=== PATIENT | male | born 1950 | race Caucasian/White ===

== ENCOUNTER 2017-03-25 09:22 | Observation (INO) | payer MEDICARE, OTHER ==
[2017-03-21 12:00] LABS: HEMATOCRIT 41.1 % (40.0-51.0); HEMOGLOBIN 13.8 g/dL (13.6-17.8)
[2017-03-21 12:08] LABS: ASCORBIC ACID (UR NOT ORDER) NEG (NEG); BILIRUBIN, URINE NEGATIVE (NEG); KETONE, URINE NEGATIVE (NEG); LEUKOCYTE ESTERASE(NOT OR NEG (NEG); WBC (NOT ORDERED) (RFLEX) 1 (0-5)
[2017-03-21 12:35] LABS: CALCIUM, SERUM 9.1 MG/DL (8.5-10.4); CHLORIDE, SERUM 108 MMOL/L (96-112); CO2 (CARBON DIOXIDE) 28 MMOL/L (24-34); CREATININE 0.87 MG/DL (0.70-1.30); GFR AFRICAN AMERICAN 103 ML/MIN (>=60); GFR NON AFRICAN AMERICAN 89 ML/MIN (>=60); POTASSIUM, SERUM 4.1 MMOL/L (3.5-5.3); SODIUM, SERUM 144 MMOL/L (135-148)
[2017-03-21 12:36] LABS: BUN (BLOOD UREA NITROGEN) 21 MG/DL (6-23); GLUCOSE, SERUM 103 MG/DL (60-99)
--- NOTE | ~2017-03-25 | OP ---
Record Of Operation [facility] [address] [place]. [address] NAME: BERT PALACIOS JR : 46 STATUS : ADM Joyce PAT#: [id number] AGE: 66 ADM/REG DATE : 03/25/17 MR#: [id number] REPORT SERV DATE: 03/28/17 DICTATED BY: AP GONZALEZ DATE: 03/27/17 REPORT STATUS : Draft TRANSCRIBED BY: [email or web address] DATE: 03/27/17 DATE OF PROCEDURE: 03/25/2017 TITLE OF OPERATION: Cystourethroscopy, transurethral resection of the prostate. PREOPERATIVE DIAGNOSIS: BPH with obstruction. POSTOPERATIVE DIAGNOSIS: BPH with obstruction. INDICATIONS: Mr. Palacios is a 66-year-old male with BPH and obstructive urination. He has a prostate volume of 60 mL. He is here for transurethral resection of the prostate. ANESTHESIA: General. COMPLICATIONS: None. IMPLANTS: 22-Sing[place]an 3-way Meyer catheter. SPECIMEN: Prostatic chips for analysis. NARRATIVE: The patient was brought to the operating room and identified by his wristband. General anesthesia was induced, and Ancef was given for preoperative antibiotics. He was placed in dorsal lithotomy position and prepped and draped in sterile fashion. A 24-Singaporean resectoscope sheath was placed into his urethra and into his bladder with the aid of an obturator. The bladder was inspected. There were some mild trabeculations, but no diverticulum. There was no tumors or other abnormalities. The prostate was inspected. There was bilobar hypertrophy with no median lobe and a high-riding bladder neck. Using a 24-Singaporean loop, the prostate was resected from its base to its apex circumferentially. The dissection was carried down to the level of the capsule laterally and superiorly into the level of the peripheral and transitional zone junction posteriorly. The verumontanum was spared as was the external urinary sphincter. The ureteral orifices were in orthotopic position and were uninjured during the case. The chips were removed from the bladder, and the bladder was inspected. There was no significant bleeding. There were no retained chips. A 22-Sing[place]an 3-way Meyer catheter was placed into the bladder. The balloon was inflated with 40 mL of sterile water. CBI was initiated, and the catheter was taped on traction. The patient was then awoken from anesthesia and transferred to recovery room in stable condition. There were no complications. SERJIO/NENA Ap Gonzalez MD / [id number] Record Of Operation [address] [place]. [address] NAME: BERT PALACIOS : 46 STATUS : ADM Joyce PAT#: [id number] AGE: 66 ADM/REG DATE : 03/25/17 MR#: [id number] REPORT SERV DATE: 03/28/17 DICTATED BY: AP GONZALEZ DATE: 03/27/17 REPORT STATUS : Draft TRANSCRIBED BY: NENA DATE: 03/27/17 CC: MD Ventura Lares M.D.
[~2017-03-25 09:22] MED LIST: CELEXA40 MG PO; FLOMAX4 PO; GLUCOPHXR7 PO; GLUCPH PO; HYZAAR 100/25 T1 TAB PO; K-TABS10 MEQ PO; L20 PO; LOVAZA1 GM PO; MELA3 PO; NABUMETONE750 MG PO; NIACIN 500 PO; NIASPAN500 PO; NORCO1 TA2 PO; NORV5 PO; OMEGA Q PLUS PO; PERCOCET1 TA4 PO; PRILOSEC40 MG PO; TOPXL100 PO; V5 PO; WELCHOL 625 MG625 MG PO; ZETIA PO
[2017-03-25 13:02] LABS: HEMATOCRIT 38.4 % (40.0-51.0); HEMOGLOBIN 13.2 g/dL (13.6-17.8)
[2017-03-26 05:34] LABS: HEMATOCRIT 40.8 % (40.0-51.0); HEMOGLOBIN 13.8 g/dL (13.6-17.8)
[2017-03-26] MEDS ORDERED: MACROBID PO (08:10)
[2017-03-26] MEDS ORDERED: DSS PO (08:10)
[2017-03-26] MEDS ORDERED: PCET PO (08:11)
[2017-03-27 15:07] LABS: BASOPHILS 0.2 %; BASOPHILS ABSOLUTE 0.01 10/3/uL (0.0-0.16); EOSINOPHILS 1.6 %; EOSINOPHILS ABSOLUTE 0.09 10/3/uL (0.0-0.53); HEMATOCRIT 40.7 % (40.0-51.0); HEMOGLOBIN 13.8 g/dL (13.6-17.8); IMMATURE GRANULOCYTES 0.2 %; IMMATURE GRANULOCYTES ABSOLUTE 0.01 10/3/uL (0.0-0.11); LYMPHOCYTES 36.4 %; LYMPHOCYTES ABSOLUTE 1.99 10/3/uL (0.67-4.30); MEAN CORPUS HGB CONC 33.9 g/dL (32.0-36.0); MEAN CORPUSCULAR HEMOGLOB 32.7 pg (26.0-34.0); MEAN CORPUSCULAR VOLUME 96.4 fL (80-100); MEAN PLATELET VOLUME 9.1 fL (9.2-13.0); MONOCYTES 8.6 %; MONOCYTES ABSOLUTE 0.47 10/3/uL (0.21-1.20); NEUTROPHILS ABSOLUTE 2.89 10/3/uL (2.02-8.40); PLATELET COUNT 176 10/3/uL (150-400); RBC DISTRIBUTION WIDTH 13.1 % (12.0-16.0); RED CELL COUNT 4.22 10/6/uL (4.7-6.1); WHITE BLOOD CELLS 5.5 10/3/uL (4.5-10.5)
[2017-03-27 15:08] LABS: MANUAL DIFF NO %
[2017-03-27 16:33] LABS: A/G RATIO 0.9 (0.7-1.9); ALBUMIN 3.1 G/DL (3.5-5.0); ALKALINE PHOSPHATASE 91 U/L (45-117); CALCIUM, SERUM 8.9 MG/DL (8.5-10.4); CHLORIDE, SERUM 103 MMOL/L (96-112); CO2 (CARBON DIOXIDE) 31 MMOL/L (24-34); CREATININE 1.02 MG/DL (0.70-1.30); GFR AFRICAN AMERICAN 87 ML/MIN (>=60); GFR NON AFRICAN AMERICAN 75 ML/MIN (>=60); GLOBULIN 3.3 G/DL (2.5-4.1); POTASSIUM, SERUM 4.5 MMOL/L (3.5-5.3); SGPT(ALT) 30 U/L (5-65); SODIUM, SERUM 139 MMOL/L (135-148); TOTAL BILIRUBIN 0.9 MG/DL (0-1.2); TOTAL PROTEIN 6.4 G/DL (6.0-8.5)
[2017-03-27 16:34] LABS: BUN (BLOOD UREA NITROGEN) 15 MG/DL (6-23); GLUCOSE, SERUM 131 MG/DL (60-99); SGOT(AST) 23 U/L (5-40)
[2017-03-28 06:53] LABS: BASOPHILS 0.2 %; BASOPHILS ABSOLUTE 0.01 10/3/uL (0.0-0.16); EOSINOPHILS ABSOLUTE 0.15 10/3/uL (0.0-0.53); HEMATOCRIT 40.1 % (40.0-51.0); HEMOGLOBIN 13.7 g/dL (13.6-17.8); IMMATURE GRANULOCYTES 0.4 %; IMMATURE GRANULOCYTES ABSOLUTE 0.02 10/3/uL (0.0-0.11); LYMPHOCYTES 41.8 %; LYMPHOCYTES ABSOLUTE 2.12 10/3/uL (0.67-4.30); MANUAL DIFF NO %; MEAN CORPUS HGB CONC 34.2 g/dL (32.0-36.0); MEAN CORPUSCULAR HEMOGLOB 32.7 pg (26.0-34.0); MEAN CORPUSCULAR VOLUME 95.7 fL (80-100); MEAN PLATELET VOLUME 9.5 fL (9.2-13.0); MONOCYTES 10.3 %; MONOCYTES ABSOLUTE 0.52 10/3/uL (0.21-1.20); NEUTROPHILS 44.3 %; NEUTROPHILS ABSOLUTE 2.25 10/3/uL (2.02-8.40); PLATELET COUNT 164 10/3/uL (150-400); RBC DISTRIBUTION WIDTH 13.2 % (12.0-16.0); RED CELL COUNT 4.19 10/6/uL (4.7-6.1); WHITE BLOOD CELLS 5.1 10/3/uL (4.5-10.5)
[2017-03-28 07:12] LABS: A/G RATIO 0.9 (0.7-1.9); ALBUMIN 2.9 G/DL (3.5-5.0); ALKALINE PHOSPHATASE 85 U/L (45-117); BUN (BLOOD UREA NITROGEN) 13 MG/DL (6-23); CALCIUM, SERUM 8.7 MG/DL (8.5-10.4); CHLORIDE, SERUM 107 MMOL/L (96-112); CREATININE 0.85 MG/DL (0.70-1.30); GFR AFRICAN AMERICAN 104 ML/MIN (>=60); GFR NON AFRICAN AMERICAN 90 ML/MIN (>=60); GLOBULIN 3.4 G/DL (2.5-4.1); GLUCOSE, SERUM 111 MG/DL (60-99); POTASSIUM, SERUM 4.2 MMOL/L (3.5-5.3); SGOT(AST) 18 U/L (5-40); SGPT(ALT) 27 U/L (5-65); SODIUM, SERUM 139 MMOL/L (135-148); TOTAL BILIRUBIN 0.6 MG/DL (0-1.2); TOTAL PROTEIN 6.3 G/DL (6.0-8.5)
[2017-03-28 07:13] LABS: CO2 (CARBON DIOXIDE) 25 MMOL/L (24-34)
[2017-03-28 07:57] LABS: PLATELET ESTIMATE ADQ (ADEQUATE)
[2017-06-07] MEDS ORDERED: FISH OIL1200 MG PO (09:52)
[2017-06-07] MEDS ORDERED: L20 PO (09:53)
[2017-06-07] MEDS ORDERED: MYRBETRIQ50 MG PO (09:55)
== END 2017-03-28 12:21 | disposition home or self-care (01) ==
LOC: SDC 09:22 → SDC/OF 12:32 → 4SO 13:21
PROVIDERS: Urology
PROC: 0VT08ZZ Resection of Prostate, Via Natural or Artificial Opening Endoscopic (ICD-10-PCS; principal; 2017-03-25 11:15)
PROC: 0TJB8ZZ Inspection of Bladder, Via Natural or Artificial Opening Endoscopic (ICD-10-PCS; 2017-03-25 11:15)
DX: N40.1 Benign prostatic hyperplasia with lower urinary tract symptoms (principal); N13.8 Other obstructive and reflux uropathy; I10 Essential (primary) hypertension; M19.90 Unspecified osteoarthritis, unspecified site; K21.9 Gastro-esophageal reflux disease without esophagitis; N32.89 Other specified disorders of bladder; G47.33 Obstructive sleep apnea (adult) (pediatric); E11.9 Type 2 diabetes mellitus without complications; F32.9 Major depressive disorder, single episode, unspecified; E78.00 Pure hypercholesterolemia, unspecified; Z99.81 Dependence on supplemental oxygen; Z88.8 Allergy status to other drugs, medicaments and biological substances; Z87.891 Personal history of nicotine dependence; Z86.010 Personal history of colon polyps
CPT/HCPCS: 36415; 80048; 80053; 81001; 82962; 84295; 85014; 85018; 85025; 86850; 86900; 86901; 88305; 93005; 96374; 96375; 96376; A9270-GY; G0378; J0690; J2250; J2405; J2550; J2710; J3010